=== PATIENT | female | born 1980 | race Asian ===

== ENCOUNTER 2017-08-09 19:16 | Emergency (ER) | payer OTHER ==
[~2017-08-09] VITALS: Ht 152.4 cm; Wt 88.5 kg
[2017-08-09 19:16] VITALS: BP_SYST 118
[2017-08-09] MEDS ORDERED: IBUPROFEN 800 MG TABLET PO ONE (22:00)
[2017-08-09 22:25] VITALS: BP_SYST 115
== END 2017-08-09 22:25 | disposition home or self-care (01) ==
LOC: SED 19:16
DX: R07.89 Other chest pain (principal); M25.512 Pain in left shoulder; J45.909 Unspecified asthma, uncomplicated; Z88.8 Allergy status to other drugs, medicaments and biological substances
CPT/HCPCS: 71045; 71100; 81025; 99284